=== PATIENT | female | born 1930 | race Caucasian/White ===

== ENCOUNTER 2018-04-09 15:08 | Emergency (ER) | payer OTHER ==
[2018-04-09 15:24] VITALS: TEMP 97.3; BMI 23.4
[2018-04-09 16:13] LABS: BASO % 0.7 % (0-2.0); EOS % 1.9 % (0-4.5); HEMATOCRIT 40.3 % (32.4-45.2); HEMOGLOBIN 14.2 GM/dL (10.7-15.3); MCH 32.6 pg (25.7-33.7); MCHC 35.2 g/dl (32.0-36.0); MEAN CELL VOLUME 92.5 fl (80-96); MONO % 6.9 % (3.8-10.2); NEUT % 71.5 % (42.8-82.8); PLATELET COUNT 209 K/MM3 (134-434); RBC 4.36 M/mm3 (3.60-5.2); RDW 12.5 % (11.6-15.6); WHITE BLOOD COUNT 7.6 K/mm3 (4.0-10.0)
[2018-04-09 16:44] LABS: URINE APPEARANCE CLEAR; URINE BILIRUBIN NEGATIVE (<2.0 mg/dL); URINE COLOR STRAW; URINE GLUCOSE (UA) NEGATIVE (NEGATIVE); URINE KETONE NEGATIVE (NEGATIVE); URINE LEUK ESTERASE NEGATIVE (NEGATIVE); URINE NITRITE NEGATIVE (NEGATIVE); URINE PROTEIN NEGATIVE (NEGATIVE); URINE UROBILINOGEN NEGATIVE mg/dL (0.2-1.0)
--- NOTE | 2018-04-09 19:20 | PDOC ---
History of Present Illness - General Chief Complaint: Respiratory Stated Complaint: CHEST PAIN/ COUGHING Time Seen by Provider: 04/09/18 15:29 History Source: Patient Exam Limitations: No Limitations - History of Present Illness Initial Comments: 04/09/18 19:16 Chart entered late, initially seen 3 hours prior Pt is an 88 y/o F with no PMH (does not have PCP) who presents to the doctor with two weeks of productive cough and nasal congestion with intermittent L sided chest pain. Pt states that she has tried some over the counter medication with little relief of her symptoms. Admits to fatigue, otherwise denies fevers, chills, nausea, vomiting, shortness of breath, difficulty breathing, frequency urgency and hematuria. Past History - Travel Traveled outside of the country in the last 30 days: No Close contact w/someone who was outside of country & ill: No - Past Medical History Allergies/Adverse Reactions: Allergies Allergy/AdvReac Type Severity Reaction Status Date / Time Penicillins Allergy Verified 04/09/18 15:24 Home Medications: Ambulatory Orders Acetaminophen [Pain Relief] 650 mg PO TID PRN 04/09/18 Benzonatate [Tessalon Pearls -] 100 mg PO TID PRN #21 capsule 04/09/18 Methylprednisolone [Medrol Dose Alex] 4 mg PO ASDIR #21 tablet 04/09/18 Cardiac Disorders: Yes (MVP) COPD: No Other medical history: rheumatism - Suicide/Smoking/Psychosocial Hx Smoking History: Former smoker Have you smoked in the past 12 months: No Information on smoking cessation initiated: No Review of Systems - Review of Systems Able to Perform ROS?: Yes Comments:: 04/09/18 19:16 CONSTITUTIONAL: Absent: fever, chills, diaphoresis, generalized weakness, malaise, loss of appetite HEENT: Present: congestion Absent: rhinorrhea, throat pain, throat swelling, difficulty swallowing, mouth swelling, ear pain, eye pain, visual Changes CARDIOVASCULAR: Present: chest pain Absent: loss of consciousness, palpitations, irregular heart rate, peripheral edema RESPIRATORY: Present: productive cough Absent: cough, shortness of breath, dyspnea with exertion, orthopnea, wheezing, stridor, hemoptysis GASTROINTESTINAL: Absent: abdominal pain, abdominal distension, nausea, vomiting, diarrhea, constipation, melena, hematochezia GENITOURINARY: Absent: dysuria, frequency, urgency, hesitancy, hematuria, flank pain, genital pain MUSCULOSKELETAL: Absent: myalgia, arthralgia, joint swelling SKIN: Absent: rash, itching, pallor HEMATOLOGIC/IMMUNOLOGIC: Absent: easy bleeding, easy bruising, lymphadenopathy, frequent infections ENDOCRINE: Absent: unexplained weight gain, unexplained weight loss, heat intolerance, cold intolerance NEUROLOGIC: Absent: headache, focal weakness or paresthesias, dizziness, unsteady gait, seizure, mental status changes, bladder or bowel incontinence PSYCHIATRIC: Absent: anxiety, depression, suicidal or homicidal ideation, hallucinations. Is the patient limited [place]ian proficient: No *Physical Exam - Vital Signs Last Vital Signs Temp Pulse Resp BP Pulse Ox 97.3 F L 77 17 114/70 99 04/09/18 15:18 04/09/18 15:18 04/09/18 15:18 04/09/18 15:18 04/09/18 15:18 - Physical Exam Comments: 04/09/18 19:18 GENERAL: Well developed, well nourished. Awake and alert. No acute distress. HEENT: Normocephalic, atraumatic. PERRLA, EOMI. No conjunctival pallor. Sclera are non- icteric. Moist mucous membranes. Oropharynx is clear. NECK: Supple. Full ROM. No JVD. Carotid pulses 2+ and symmetric, without bruits. No thyromegaly. No lymphadenopathy. CARDIOVASCULAR: Regular rate and rhythm. No murmurs, rubs, or gallops. Distal pulses are 2+ and symmetric. PULMONARY: No evidence of respiratory distress. Lungs clear to auscultation bilaterally. No wheezing, rales or rhonchi. ABDOMINAL: Soft. Non-tender. Non-distended. No rebound or guarding. No organomegaly. Normoactive bowel sounds. MUSCULOSKELETAL Normal range of motion at all joints. No bony deformities or tenderness. No CVA tenderness. EXTREMITIES: No cyanosis. No clubbing. No edema. No calf tenderness. SKIN: Warm and dry. Normal capillary refill. No rashes. No jaundice. NEUROLOGICAL: Alert, awake, appropriate. Cranial nerves 2-12 intact. No deficits to light touch and temperature in face, upper extremities and lower extremities. No motor deficits in the in face, upper extremities and lower extremities. Normoreflexic in the upper and lower extremities. Normal speech. Toes are down- going bilaterally. Gait is normal without ataxia. PSYCHIATRIC: Cooperative. Good eye contact. Appropriate mood and affect. Moderate Sedation - Procedure Monitoring Vital Signs: Procedure Monitoring Vital Signs Temperature 97.3 F L 04/09/18 15:18 Pulse Rate 77 04/09/18 15:18 Respiratory Rate 17 04/09/18 15:18 Blood Pressure 114/70 04/09/18 15:18 O2 Sat by Pulse Oximetry (%) 99 04/09/18 15:18 ED Treatment Course - LABORATORY CBC & Chemistry Diagram: 04/09/18 15:59 04/09/18 15:59 - ADDITIONAL ORDERS Additional order review: Laboratory Results 04/09/18 04/09/18 16:25 15:59 Creatine Kinase Cancelled Troponin I Cancelled Urine Color Straw Urine Appearance Clear Urine pH 6.0 Ur Specific [place] 1.002 L Urine Protein Negative Urine Glucose (UA) Negative Urine Ketones Negative Urine Blood Negative Urine Nitrite Negative Urine Bilirubin Negative Urine Urobilinogen Negative Ur Leukocyte Esterase Negative 04/09/18 15:59 RBC 4.36 MCV 92.5 MCHC 35.2 RDW 12.5 MPV 8.0 Neutrophils % 71.5 Lymphocytes % 19.0 Monocytes % 6.9 Eosinophils % 1.9 Basophils % 0.7 - RADIOLOGY Radiology Studies Ordered: Category Date Time Status CHEST PA & LAT [RAD] Stat Radiology 04/09/18 15:29 Completed Medical Decision Making - Medical Decision Making 04/09/18 19:18 Pt is an 88 y/o F with no PMH (No PCP) who presents to the ED with two weeks of cough and intermittant chest pain -Pt currently chest pain free in the ED -Labs, urine, EKG ordered -CXR negative for acute pathology -No leukocytosis on labs -Pending cardiac enzymes -Sign out given to JUNITO Rod; pending labs for dispo EKG: Rate 66BPM. NSR. Left axis deviation. Normal intervals. No acute ST-T wave changes. *DC/Admit/Observation/Transfer Diagnosis at time of Disposition: URI (upper respiratory infection), Cough - Discharge Dispostion Disposition: HOME Condition at time of disposition: Stable - Prescriptions Prescriptions: Benzonatate [Tessalon Pearls -] 100 mg PO TID PRN #21 capsule PRN Reason: Cough Methylprednisolone [Medrol Dose Alex] 4 mg PO ASDIR #21 tablet - Referrals Referrals: Lucrecia Angel MD [Staff Physician] - José Peña MD [Staff Physician] - - Patient Instructions Printed Discharge Instructions: DI for Viral Upper Respiratory Infection -- Adult Additional Instructions: labs was normal and chest x-ray was normal. Follow-up with primary care Dr. Angel for follow-up as soon as possible. continue with home cough as needed. Follow-up with referred residential sales rep - Post Discharge Activity
[2018-04-09 19:33] LABS: BLOOD UREA NITROGEN 13 mg/dL (7-18); CREATININE 0.7 mg/dL (0.55-1.3); GLUCOSE,RANDOM 110 mg/dL (74-106); POTASSIUM 4.1 mmol/L (3.5-5.1); SODIUM 135 mmol/L (136-145)
[2018-04-09 19:34] LABS: ALBUMIN 3.5 g/dl (3.4-5.0); ALK PHOS 86 U/L (45-117); ANION GAP 6 MMOL/L (8-16); BILIRUBIN,TOTAL 0.4 mg/dL (0.2-1); CALCIUM 8.4 mg/dL (8.5-10.1); CHLORIDE 102 mmol/L (98-107); CO2 27 mmol/L (21-32); SGOT/AST 23 U/L (15-37); SGPT/ALT 25 U/L (13-61)
[2018-04-09 19:37] VITALS: BP 126/69; PULSE 69
--- NOTE | 2018-04-09 20:14 | PDOC ---
*Physical Exam - Vital Signs Last Vital Signs Temp Pulse Resp BP Pulse Ox 97.3 F L 69 18 126/69 96 04/09/18 15:18 04/09/18 19:36 04/09/18 19:36 04/09/18 19:36 04/09/18 19:36 - Physical Exam General Appearance: Yes: Nourished, Appropriately Dressed. No: Apparent Distress HEENT: positive: ANK[place], Normal ENT Inspection Neck: positive: Supple Respiratory/Chest: positive: Lungs Clear, Normal Breath Sounds. negative: Respiratory Distress, Accessory Muscle Use Cardiovascular: positive: Regular Rhythm, Regular Rate Musculoskeletal: positive: Normal Inspection Extremity: positive: Normal Inspection Integumentary: positive: Normal Color, Warm Neurologic: positive: Fully Oriented, Alert. negative: Normal Mood/Affect ED Treatment Course - LABORATORY CBC & Chemistry Diagram: 04/09/18 15:59 04/09/18 15:59 - ADDITIONAL ORDERS Additional order review: Laboratory Results 04/09/18 04/09/18 04/09/18 16:25 15:59 15:59 Sodium 135 L Potassium 4.1 Chloride 102 Carbon Dioxide 27 Anion Gap 6 L BUN 13 Creatinine 0.7 Creat Clearance w eGFR > 60 Random Glucose 110 H Calcium 8.4 L Total Bilirubin 0.4 AST 23 ALT 25 Alkaline Phosphatase 86 Creatine Kinase Cancelled Troponin I Cancelled Total Protein 7.0 Albumin 3.5 Urine Color Straw Urine Appearance Clear Urine pH 6.0 Ur Specific [place] 1.002 L Urine Protein Negative Urine Glucose (UA) Negative Urine Ketones Negative Urine Blood Negative Urine Nitrite Negative Urine Bilirubin Negative Urine Urobilinogen Negative Ur Leukocyte Esterase Negative 04/09/18 15:59 RBC 4.36 MCV 92.5 MCHC 35.2 RDW 12.5 MPV 8.0 Neutrophils % 71.5 Lymphocytes % 19.0 Monocytes % 6.9 Eosinophils % 1.9 Basophils % 0.7 Medical Decision Making - Medical Decision Making 04/09/18 20:02 I assumed care of this 88-year-old with no past medical history due to poor medical care and I haven't PCP present with complaint of 2 weeks history of intermittent cough and left-sided chest pain which has not been improving with [id number] medication. Patient with no complaint of chest pain now. Patient denies shortness of breath, dizziness, palpitations, fever, chills, nausea or vomiting. Patient denies any other symptoms. Chest x-ray done shows no acute infiltrate. CBC shows normal result. Chemistry lab normal with cardial profile still pending. Patient will be discharged home treatment with cough with PCP follow-up and pulmonology follow-up if negative cardial profile 04/09/18 23:20 cardiac profile negative. Patient stable for discharge with PCP and pulmonology f/u *DC/Admit/Observation/Transfer Diagnosis at time of Disposition: Cough URI (upper respiratory infection) Qualifiers: URI type: unspecified URI Qualified Code(s): J06.9 - Acute upper respiratory infection, unspecified - Discharge Dispostion Disposition: HOME Condition at time of disposition: Stable Decision to Admit order: No - Prescriptions Prescriptions: Benzonatate [Tessalon Pearls -] 100 mg PO TID PRN #21 capsule PRN Reason: Cough Methylprednisolone [Medrol Dose Alex] 4 mg PO ASDIR #21 tablet - Referrals Referrals: Lucrecia Angel MD [Staff Physician] - José Peña MD [Staff Physician] - - Patient Instructions Printed Discharge Instructions: DI for Viral Upper Respiratory Infection -- Adult Additional Instructions: labs was normal and chest x-ray was normal. Follow-up with primary care Dr. Angel for follow-up as soon as possible. continue with home cough as needed. Follow-up with referred legal records clerk - Post Discharge Activity
--- NOTE | 2018-04-10 11:43 | EKG ---
Test Reason : Blood Pressure : / mmHG Vent. Rate : 066 BPM Atrial Rate : 066 BPM P-R Int : 184 ms QRS Dur : 112 ms QT Int : 402 ms P-R-T Axes : 070 -58 092 degrees QTc Int : 421 ms NORMAL SINUS RHYTHM LEFT ANTERIOR FASCICULAR BLOCK ABNORMAL ECG NO PREVIOUS ECGS AVAILABLE Confirmed by KEVIN GOLDEN MD ([id number]) on 04/10/2018 11:43:28 AM Referred By: Confirmed By:KEVIN GOLDEN MD
== END 2018-04-09 23:28 | disposition home or self-care (01) ==
LOC: JER 15:08
DX: J06.9 Acute upper respiratory infection, unspecified (principal)
CPT/HCPCS: 36415; 71046-TC-FY; 80053; 81003; 82550; 84484; 85025; 93005; 93010; 99282-25